=== PATIENT | female | born 1970 | race Caucasian/White ===

== ENCOUNTER → 2018-02-07 | Outpatient (CLI) | payer OTHER ==
[2018-02-07 08:50] LABS: Basophils # (auto) 0 uL; Basophils % (auto) 0.5 % (0.0-2.0); Eosinophils # (auto) 0.1 uL; Eosinophils % (auto) 1.8 % (0.0-7.0); Hematocrit 48.7 % (36.0-46.0); Hemoglobin 16.2 g/dL (12.2-16.2); Lymphocytes # (auto) 2.7 uL; Lymphocytes % (auto) 35.3 % (10.0-50.0); Mean Corpuscular Hemoglobin 30.1 pg (28.0-32.0); Mean Corpuscular Hgb Conc. 33.3 g/dL (32.0-36.0); Mean Corpuscular Volume 90.2 fL (80.0-100.0); Monocytes # (auto) 0.5 uL; Monocytes % (auto) 6.4 % (0.0-12.0); Neutrophils # (auto) 4.2 uL; Nucleated Red Blood Cells % 0.1 %; Platelet Count (auto) 189 10^3/uL (140-450); Red Blood Cells 5.39 10^6/uL (4.0-5.20); Red Cell Distribution Width 13.1 % (11.8-14.3); White Blood Cell 7.5 10^3/uL (4.4-10.8)
[2018-02-07 09:37] LABS: Albumin 3.7 g/dL (3.4-5.0); BUN/Creatinine Ratio 18.6; Bilirubin, Total 0.9 mg/dL (0.2-1.0); Calcium 9.1 mg/dL (8.5-10.1); Potassium 3.9 mmol/L (3.5-5.1); Total Protein 7.1 g/dL (6.4-8.2)
== END | disposition home or self-care (01) ==
LOC: LAB 07:48
PROVIDERS: ATTEND Family Medicine
DX: Z00.01 Encounter for general adult medical examination with abnormal findings (principal); R79.89 Other specified abnormal findings of blood chemistry; Z72.0 Tobacco use
CPT/HCPCS: 36415; 80053; 80061; 82607; 83036; 84443; 85025

== ENCOUNTER → 2018-03-14 | Outpatient (CLI) | payer OTHER ==
[2018-03-14 10:42] LABS: Albumin 3.9 g/dL (3.4-5.0); BUN/Creatinine Ratio 16.7; Bilirubin, Total 1.1 mg/dL (0.2-1.0); Calcium 9.2 mg/dL (8.5-10.1); Potassium 3.8 mmol/L (3.5-5.1); Total Protein 7.8 g/dL (6.4-8.2)
== END | disposition home or self-care (01) ==
LOC: LAB 08:40
PROVIDERS: ATTEND Family Medicine
DX: E53.8 Deficiency of other specified B group vitamins (principal); E78.4 Other hyperlipidemia
CPT/HCPCS: 36415; 80053; 80061; 82607

== ENCOUNTER → 2019-02-27 | Outpatient (CLI) | payer OTHER ==
[2019-02-27 08:35] LABS: Basophils # (auto) 0 uL; Basophils % (auto) 0.4 % (0.0-2.0); Eosinophils # (auto) 0.1 uL; Eosinophils % (auto) 1.8 % (0.0-7.0); Hematocrit 49.8 % (36.0-46.0); Hemoglobin 16.5 g/dL (12.2-16.2); Lymphocytes # (auto) 2.3 uL; Lymphocytes % (auto) 30.3 % (10.0-50.0); Mean Corpuscular Hemoglobin 30.2 pg (28.0-32.0); Mean Corpuscular Hgb Conc. 33.1 g/dL (32.0-36.0); Mean Corpuscular Volume 91.5 fL (80.0-100.0); Monocytes # (auto) 0.4 uL; Monocytes % (auto) 5.9 % (0.0-12.0); Neutrophils # (auto) 4.7 uL; Neutrophils % (auto) 61.6 % (37.0-80.0); Nucleated Red Blood Cells % 0.1 %; Platelet Count (auto) 179 10^3/uL (140-450); Red Blood Cells 5.44 10^6/uL (4.0-5.20); Red Cell Distribution Width 13.4 % (11.8-14.3); White Blood Cell 7.7 10^3/uL (4.4-10.8)
[2019-02-27 09:09] LABS: Albumin 3.5 g/dL (3.4-5.0); Calcium 8.8 mg/dL (8.5-10.1)
[2019-02-27 09:14] LABS: BUN/Creatinine Ratio 17.6; Total Protein 6.8 g/dL (6.4-8.2)
[2019-02-27 09:58] LABS: Urine Bacteria NONE SEEN /hpf (None Seen); Urine Blood Negative /uL (Negative); Urine Specific Gravity 1.003 (1.001-1.035); Urine WBC <1 /hpf (0 - 5)
== END | disposition home or self-care (01) ==
LOC: LAB 08:01
PROVIDERS: ATTEND Family Medicine
DX: E78.2 Mixed hyperlipidemia (principal); E53.8 Deficiency of other specified B group vitamins; J45.30 Mild persistent asthma, uncomplicated; Z72.0 Tobacco use
CPT/HCPCS: 36415; 80053; 80061; 81001; 82306; 82607; 84443; 85025

== ENCOUNTER → 2019-05-19 | Outpatient (CLI) | payer OTHER ==
[2019-05-19 13:52] LABS: Albumin 3.6 g/dL (3.4-5.0); Bilirubin, Direct 0.2 mg/dL (0-0.2)
[2019-05-19 13:55] LABS: Bilirubin, Total 0.6 mg/dL (0.2-1.0); Total Protein 6.7 g/dL (6.4-8.2)
== END | disposition home or self-care (01) ==
LOC: LAB 07:07
PROVIDERS: ATTEND Family Medicine
DX: E55.9 Vitamin D deficiency, unspecified (principal); E78.9 Disorder of lipoprotein metabolism, unspecified; E67.8 Other specified hyperalimentation
CPT/HCPCS: 36415; 80061; 80076; 82306; 82607

== ENCOUNTER → 2019-08-14 | Outpatient (CLI) | payer OTHER ==
[2019-08-14 08:57] LABS: Albumin 3.6 g/dL (3.4-5.0); Potassium 4.2 mmol/L (3.5-5.1)
[2019-08-14 09:07] LABS: BUN/Creatinine Ratio 24.5; Bilirubin, Total 1.2 mg/dL (0.2-1.0); Calcium 8.9 mg/dL (8.5-10.1); Total Protein 7.2 g/dL (6.4-8.2)
== END | disposition home or self-care (01) ==
LOC: LAB 07:18
PROVIDERS: ATTEND Family Medicine
DX: E78.2 Mixed hyperlipidemia (principal); E67.8 Other specified hyperalimentation; J45.909 Unspecified asthma, uncomplicated
CPT/HCPCS: 36415; 80053; 80061

== ENCOUNTER 2019-08-15 10:37 | Emergency (ER) | payer OTHER ==
[~2019-08-15] VITALS: Ht 170.2 cm; Wt 68.0 kg
[2019-08-15 11:58] LABS: Basophils # (auto) 0 uL; Basophils % (auto) 0.5 % (0.0-2.0); Eosinophils # (auto) 0.2 uL; Eosinophils % (auto) 1.8 % (0.0-7.0); Hematocrit 45.9 % (36.0-46.0); Hemoglobin 15.4 g/dL (12.2-16.2); Lymphocytes # (auto) 2.7 uL; Lymphocytes % (auto) 32.3 % (10.0-50.0); Mean Corpuscular Hemoglobin 30.9 pg (28.0-32.0); Mean Corpuscular Hgb Conc. 33.4 g/dL (32.0-36.0); Mean Corpuscular Volume 92.3 fL (80.0-100.0); Monocytes # (auto) 0.4 uL; Monocytes % (auto) 5.1 % (0.0-12.0); Neutrophils # (auto) 5.1 uL; Neutrophils % (auto) 60.3 % (37.0-80.0); Nucleated Red Blood Cells % 0.1 %; Platelet Count (auto) 212 10^3/uL (140-450); Red Blood Cells 4.97 10^6/uL (4.0-5.20); White Blood Cell 8.4 10^3/uL (4.4-10.8)
[2019-08-15 12:14] LABS: Chloride 106 mmol/L (98-107); Potassium 3.7 mmol/L (3.5-5.1); Sodium 138 mmol/L (136-145)
[2019-08-15 12:19] LABS: Albumin 3.5 g/dL (3.4-5.0); Anion Gap 4 (5-15); BUN/Creatinine Ratio 18.5; Blood Urea Nitrogen 10 mg/dL (7-18); Calcium 8.1 mg/dL (8.5-10.1); Carbon Dioxide 28 mmol/L (21-32); GFR African American 153 mL/min; GFR Non-African American 127 mL/min; Glucose 100 mg/dL (74-106)
[2019-08-15 12:24] LABS: Alanine Aminotransferase 22 U/L (13-56); Alkaline Phosphatase 86 U/L (45-117); Aspartate Aminotransferase 15 U/L (15-37); Total Protein 6.9 g/dL (6.4-8.2)
[2019-08-15 15:00] VITALS: BP 111/72
== END 2019-08-15 15:24 | disposition home or self-care (01) ==
LOC: EDBD 10:37 → ER 10:47
DX: S02.5XXA Fracture of tooth (traumatic), initial encounter for closed fracture (principal); R55 Syncope and collapse; R42 Dizziness and giddiness; J45.909 Unspecified asthma, uncomplicated; F17.210 Nicotine dependence, cigarettes, uncomplicated; X58.XXXA Exposure to other specified factors, initial encounter; Y93.89 Activity, other specified; Y92.89 Other specified places as the place of occurrence of the external cause; Y99.8 Other external cause status
CPT/HCPCS: 36415; 70450; 70486; 80053; 84484; 85025; 93005

== ENCOUNTER → 2019-11-17 | Outpatient (CLI) | payer OTHER | END | disposition home or self-care (01) | LOC: Rad HDHVI 08:06 | PROVIDERS: ATTEND Internal Medicine Cardiovascular Disease | DX: I34.0 Nonrheumatic mitral (valve) insufficiency (principal); I47.9 Paroxysmal tachycardia, unspecified; J44.9 Chronic obstructive pulmonary disease, unspecified; R55 Syncope and collapse | CPT/HCPCS: 93306 ==

== ENCOUNTER → 2019-11-25 | Outpatient (CLI) | payer OTHER | END | disposition home or self-care (01) | LOC: Rad HDHVI 12:45 | PROVIDERS: ATTEND Internal Medicine Cardiovascular Disease | DX: I10 Essential (primary) hypertension (principal); R55 Syncope and collapse | CPT/HCPCS: 93880 ==

== ENCOUNTER → 2019-11-30 | Outpatient (CLI) | payer OTHER ==
[~2019-11-30] VITALS: Ht 167.6 cm; Wt 68.0 kg
== END | disposition home or self-care (01) ==
LOC: Rad HDHVI 09:29
PROVIDERS: ATTEND Internal Medicine Cardiovascular Disease
DX: E78.00 Pure hypercholesterolemia, unspecified (principal); F17.210 Nicotine dependence, cigarettes, uncomplicated; Z82.49 Family history of ischemic heart disease and other diseases of the circulatory system
CPT/HCPCS: 78452; 93017; 96374; A9500

== ENCOUNTER → 2020-10-06 | Outpatient (CLI) | payer OTHER ==
[2020-10-06 07:49] LABS: Potassium 3.9 mmol/L (3.5-5.1)
[2020-10-06 07:57] LABS: Basophils # (auto) 0.1 10 ^3/uL (0-0.2); Basophils % (auto) 0.7 % (0.0-2.0); Eosinophils # (auto) 0.2 10 ^3/uL (0-0.8); Eosinophils % (auto) 2.5 % (0.0-7.0); Hematocrit 44.3 % (36.0-46.0); Hemoglobin 15.4 g/dL (12.2-16.2); Lymphocytes # (auto) 3.2 10 ^3/uL (0.4-5.4); Mean Corpuscular Hemoglobin 31.6 pg (28.0-32.0); Mean Corpuscular Hgb Conc. 34.7 g/dL (32.0-36.0); Mean Corpuscular Volume 91.2 fL (80.0-100.0); Monocytes # (auto) 0.5 10 ^3/uL (0-1.3); Monocytes % (auto) 6.6 % (0.0-12.0); Neutrophils # (auto) 3.7 10 ^3/uL (1.6-8.6); Neutrophils % (auto) 48.2 % (37.0-80.0); Platelet Count (auto) 160 10^3/uL (140-450); Red Blood Cells 4.86 10^6/uL (4.0-5.20); Red Cell Distribution Width 13.4 % (11.8-14.3); White Blood Cell 7.6 10^3/uL (4.4-10.8)
[2020-10-06 08:15] LABS: Albumin 3.5 g/dL (3.4-5.0); BUN/Creatinine Ratio 26.2; Bilirubin, Total 0.8 mg/dL (0.2-1.0); Calcium 8.9 mg/dL (8.5-10.1); Total Protein 7.1 g/dL (6.4-8.2)
== END | disposition home or self-care (01) ==
LOC: LAB 07:10
PROVIDERS: ATTEND Family Medicine
DX: E78.2 Mixed hyperlipidemia (principal); E67.8 Other specified hyperalimentation; E66.3 Overweight; E55.9 Vitamin D deficiency, unspecified; J45.30 Mild persistent asthma, uncomplicated; Z72.0 Tobacco use
CPT/HCPCS: 36415; 80053; 80061; 82306; 82607; 84443; 85025

== ENCOUNTER → 2022-02-22 | Outpatient (CLI) | payer OTHER | END | disposition home or self-care (01) | LOC: LAB 13:56 | PROVIDERS: ATTEND Student in an Organized Health Care Education/Training Program | DX: Z12.11 Encounter for screening for malignant neoplasm of colon (principal); Z00.00 Encounter for general adult medical examination without abnormal findings | CPT/HCPCS: 82274 ==

== ENCOUNTER → 2022-05-17 | Outpatient (CLI) | payer OTHER ==
[~2022-05-17] MED LIST: ALBUTEROL SULF 2.5 MG/0.5ML(0.5%) NEB SOLN ONE
== END | disposition home or self-care (01) ==
LOC: RT 09:47
PROVIDERS: ATTEND Internal Medicine Pulmonary Disease
DX: J44.9 Chronic obstructive pulmonary disease, unspecified (principal)
CPT/HCPCS: 94060; 94727; 94729

== ENCOUNTER → 2022-10-26 | Outpatient (CLI) | payer OTHER ==
[2022-10-26 09:10] LABS: Basophils # (auto) 0.1 10 ^3/uL (0-0.2); Basophils % (auto) 0.8 % (0.0-2.0); Eosinophils # (auto) 0.2 10 ^3/uL (0-0.8); Eosinophils % (auto) 2.5 % (0.0-7.0); Hematocrit 46.4 % (36.0-46.0); Hemoglobin 14.9 g/dL (12.2-16.2); Lymphocytes # (auto) 2.3 10 ^3/uL (0.4-5.4); Lymphocytes % (auto) 28.6 % (10.0-50.0); Mean Corpuscular Hemoglobin 28.8 pg (28.0-32.0); Mean Corpuscular Hgb Conc. 32.1 g/dL (32.0-36.0); Mean Corpuscular Volume 89.6 fL (80.0-100.0); Monocytes # (auto) 0.4 10 ^3/uL (0-1.3); Monocytes % (auto) 5.6 % (0.0-12.0); Neutrophils % (auto) 62.5 % (37.0-80.0); Nucleated Red Blood Cells % 0.1 %; Red Blood Cells 5.17 10^6/uL (4.0-5.20)
[2022-10-26 10:58] LABS: Albumin 3.7 g/dL (3.4-5.0); Calcium 9.1 mg/dL (8.5-10.1)
[2022-10-26 11:08] LABS: Bilirubin, Total 1.3 mg/dL (0.2-1.0); Total Protein 7.4 g/dL (6.4-8.2)
== END | disposition home or self-care (01) ==
LOC: LAB 08:41
PROVIDERS: ATTEND Student in an Organized Health Care Education/Training Program
DX: E78.3 Hyperchylomicronemia (principal); E55.9 Vitamin D deficiency, unspecified; E53.8 Deficiency of other specified B group vitamins; R63.5 Abnormal weight gain
CPT/HCPCS: 36415; 80053; 80061; 84439; 84443; 85025

== ENCOUNTER → 2024-03-27 | Outpatient (CLI) | payer OTHER ==
[2024-03-30 10:08] LABS: Hepatitis B Core Total AB Negative (Negative)
[2024-03-30 11:54] LABS: Hepatitis A Total Antibody Negative (Negative); Hepatitis B Surface Antibody Negative (Negative); Hepatitis B Surface Antigen Negative (Negative); Hepatitis C Antibody Negative (Negative)
== END | disposition home or self-care (01) ==
LOC: LAB 12:21
PROVIDERS: ATTEND Student in an Organized Health Care Education/Training Program
DX: R74.01 Elevation of levels of liver transaminase levels (principal)
CPT/HCPCS: 36415; 86704; 86706; 86708; 86803; 87340

== ENCOUNTER → 2024-12-14 | Outpatient (CLI) | payer OTHER ==
[2024-12-14 11:50] LABS: Basophils # (auto) 0.1 10 ^3/uL (0-0.2); Eosinophils # (auto) 0.1 10 ^3/uL (0-0.8); Hemoglobin 13.5 g/dL (12.2-16.2); Mean Corpuscular Volume 81.1 fL (80.0-100.0); White Blood Cell 6.2 10^3/uL (4.4-10.8)
[2024-12-14 11:52] LABS: Hematocrit 41.5 % (36.0-46.0); Lymphocytes # (auto) 2.2 10 ^3/uL (0.4-5.4); Lymphocytes % (auto) 35.2 % (10.0-50.0); Mean Corpuscular Hemoglobin 26.4 pg (28.0-32.0); Mean Corpuscular Hgb Conc. 32.5 g/dL (32.0-36.0); Monocytes # (auto) 0.4 10 ^3/uL (0-1.3); Monocytes % (auto) 5.7 % (0.0-12.0); Neutrophils # (auto) 3.5 10 ^3/uL (1.6-8.6); Neutrophils % (auto) 56.1 % (37.0-80.0); Platelet Count (auto) 166 10^3/uL (140-450); Red Blood Cells 5.12 10^6/uL (4.0-5.20); Red Cell Distribution Width 15.6 % (11.8-14.3)
[2024-12-14 11:57] LABS: Alanine Aminotransferase 21 U/L (7-40); Anion Gap 8 (5-15); Carbon Dioxide 25 mmol/L (20-31); Chloride 105 mmol/L (98-107); Sodium 138 mmol/L (136-145)
[2024-12-14 11:58] LABS: Alkaline Phosphatase 186 U/L (46-116); BUN/Creatinine Ratio 13.9 (10.0-20.0); Blood Urea Nitrogen 10 mg/dL (9-23); Glucose 310 mg/dL (74-106); Triglycerides 204 mg/dL (< 150)
[2024-12-14 11:59] LABS: Albumin 4.6 g/dL (3.2-4.8)
[2024-12-14 12:00] LABS: Bilirubin, Total 0.8 mg/dL (0.2-1.0)
[2024-12-14 12:01] LABS: Aspartate Aminotransferase 12 U/L (13-40); Cholesterol 235 mg/dL (< 200); HDL Cholesterol 36 mg/dL (40-59); LDL Cholesterol 163 mg/dL (< 100)
== END | disposition home or self-care (01) ==
LOC: LAB 11:14
PROVIDERS: ATTEND Licensed Practical Nurse
DX: Z12.11 Encounter for screening for malignant neoplasm of colon (principal); Z13.1 Encounter for screening for diabetes mellitus; Z13.29 Encounter for screening for other suspected endocrine disorder; J44.9 Chronic obstructive pulmonary disease, unspecified; E78.2 Mixed hyperlipidemia; E55.9 Vitamin D deficiency, unspecified; R91.1 Solitary pulmonary nodule; R79.89 Other specified abnormal findings of blood chemistry
CPT/HCPCS: 36415; 80053; 80061; 82274; 82306; 82607; 83036; 84443; 85025

== ENCOUNTER → 2025-01-22 | Outpatient (CLI) | payer OTHER | END | disposition home or self-care (01) | LOC: LAB 10:45 | PROVIDERS: ATTEND Obstetrics & Gynecology | DX: R87.611 Atypical squamous cells cannot exclude high grade squamous intraepithelial lesion on cytologic smear of cervix (ASC-H) (principal) ==

== ENCOUNTER → 2025-02-03 | Outpatient (CLI) | payer OTHER ==
[2025-02-03 07:47] LABS: Basophils # (auto) 0 10 ^3/uL (0-0.2); Eosinophils # (auto) 0.3 10 ^3/uL (0-0.8); Lymphocytes # (auto) 2.1 10 ^3/uL (0.4-5.4); Monocytes # (auto) 0.5 10 ^3/uL (0-1.3)
[2025-02-03 07:50] LABS: Basophils % (auto) 0.6 % (0.0-2.0); Eosinophils % (auto) 3.9 % (0.0-7.0); Hematocrit 45.8 % (36.0-46.0); Hemoglobin 15.1 g/dL (12.2-16.2); Lymphocytes % (auto) 26.8 % (10.0-50.0); Mean Corpuscular Hemoglobin 26.9 pg (28.0-32.0); Mean Corpuscular Volume 81.6 fL (80.0-100.0); Monocytes % (auto) 5.9 % (0.0-12.0); Neutrophils % (auto) 62.8 % (37.0-80.0); Nucleated Red Blood Cells % 0.2 %; Platelet Count (auto) 238 10^3/uL (140-450); Red Blood Cells 5.61 10^6/uL (4.0-5.20); Red Cell Distribution Width 14.2 % (11.8-14.3); White Blood Cell 7.9 10^3/uL (4.4-10.8)
[2025-02-03 07:57] LABS: Alanine Aminotransferase 31 U/L (7-40); Anion Gap 9 (5-15); Aspartate Aminotransferase 26 U/L (13-40); BUN/Creatinine Ratio 13.2 (10.0-20.0); Bilirubin, Total 0.9 mg/dL (0.2-1.0); Blood Urea Nitrogen 9 mg/dL (9-23); Carbon Dioxide 27 mmol/L (20-31); Chloride 107 mmol/L (98-107); Cholesterol 149 mg/dL (< 200); LDL Cholesterol 92 mg/dL (< 100); Sodium 143 mmol/L (136-145); Total Protein 7.7 g/dL (5.7-8.2); Triglycerides 127 mg/dL (< 150)
[2025-02-03 07:58] LABS: Albumin 5.2 g/dL (3.2-4.8); Alkaline Phosphatase 144 U/L (46-116); Calcium 11.1 mg/dL (8.7-10.4); Glucose 122 mg/dL (74-106); HDL Cholesterol 32 mg/dL (40-59); Potassium 3.1 mmol/L (3.5-5.1)
[2025-02-03 10:20] LABS: Hepatitis B Core Total AB Negative (Negative)
[2025-02-03 11:55] LABS: Hepatitis A Total Antibody Positive (Negative); Hepatitis B Surface Antibody Negative (Negative); Hepatitis B Surface Antigen Negative (Negative); Hepatitis C Antibody Negative (Negative)
== END | disposition home or self-care (01) ==
LOC: LAB 06:42
PROVIDERS: ATTEND Licensed Practical Nurse
DX: E11.65 Type 2 diabetes mellitus with hyperglycemia (principal); J44.9 Chronic obstructive pulmonary disease, unspecified; E78.2 Mixed hyperlipidemia; K76.0 Fatty (change of) liver, not elsewhere classified
CPT/HCPCS: 36415; 80053; 80061; 82607; 83036; 85025; 86703; 86704; 86706; 86708; 86803; 87340

== ENCOUNTER 2025-03-26 07:13 | Day surgery (SDC) | payer OTHER ==
[2025-03-24 10:10] LABS: Urine Bacteria None Seen /hpf (None Seen)
[2025-03-24 10:15] LABS: Basophils # (auto) 0.1 10 ^3/uL (0-0.2); Basophils % (auto) 0.7 % (0.0-2.0); Eosinophils # (auto) 0.2 10 ^3/uL (0-0.8); Eosinophils % (auto) 2.1 % (0.0-7.0); Hematocrit 43.5 % (36.0-46.0); Hemoglobin 14.5 g/dL (12.2-16.2); Lymphocytes # (auto) 2.6 10 ^3/uL (0.4-5.4); Lymphocytes % (auto) 23.4 % (10.0-50.0); Mean Corpuscular Hgb Conc. 33.3 g/dL (32.0-36.0); Mean Corpuscular Volume 83.9 fL (80.0-100.0); Monocytes # (auto) 0.5 10 ^3/uL (0-1.3); Monocytes % (auto) 4.9 % (0.0-12.0); Neutrophils # (auto) 7.6 10 ^3/uL (1.6-8.6); Neutrophils % (auto) 68.9 % (37.0-80.0); Nucleated Red Blood Cells % 0.1 %; Platelet Count (auto) 228 10^3/uL (140-450); Red Blood Cells 5.19 10^6/uL (4.0-5.20); Red Cell Distribution Width 14.4 % (11.8-14.3)
[2025-03-24 10:21] LABS: Urine Blood 1+ /uL (Negative); Urine Clarity Clear (Clear); Urine Color Light-Yellow (Yellow); Urine Mucus FEW (None Seen); Urine Protein, UAD Negative (Negative); Urine Specific Gravity 1.009 (1.001-1.035); Urine Squamous Epithelial Cell FEW /hpf (<5); Urine Urobilinogen Normal (Negative); Urine WBC 2 /HPF (0-5)
[2025-03-24 10:32] LABS: INR 1.02 (0.9-1.15); Partial Thromboplastin Time 28.9 SEC (24.5-34.5); Prothrombin Time 10.8 sec (9.3-11.8)
[2025-03-24 10:47] LABS: Alanine Aminotransferase 18 U/L (7-40); Alkaline Phosphatase 102 U/L (46-116); Anion Gap 9 (5-15); Aspartate Aminotransferase 14 U/L (<34); BUN/Creatinine Ratio 13.8 (10.0-20.0); Carbon Dioxide 27 mmol/L (20-31); Chloride 106 mmol/L (98-107); Glucose 90 mg/dL (74-106); Potassium 4.2 mmol/L (3.5-5.1); Sodium 142 mmol/L (136-145); Total Protein 7.6 g/dL (5.7-8.2)
[2025-03-24 10:48] LABS: Bilirubin, Total 1.1 mg/dL (0.2-1.0)
[2025-03-24 10:51] LABS: Albumin 5.1 g/dL (3.2-4.8); Blood Urea Nitrogen 9 mg/dL (9-23)
[~2025-03-26] VITALS: Ht 167.6 cm; Wt 73.5 kg
[~2025-03-26 07:13] MED LIST changes: +ALBUAER3 IN; -ALBUTEROL SULF 2.5 MG/0.5ML(0.5%) NEB SOLN ONE; +CHOL200021 PO; +IPRA0.03; +METF-1145 PO; +ROSU40TA81 PO; +TIRZ7.5I SC; +UMEC1AER IN
[2025-03-26] MEDS ORDERED: IBUP-1456 PO (08:03)
[2025-03-26] MEDS ORDERED: HYDR-4072 PO (08:03)
[2025-03-26] MEDS ORDERED: ZOFR4T PO (08:03)
[2025-03-26] MEDS ORDERED: ONDANSETRON HCL 4 MG/2 ML VIAL IV PRN (08:15)
[2025-03-26] MEDS ORDERED: LACTATED RINGER'S 1,000 ML IV SCH (08:15)
[2025-03-26] MEDS ORDERED: SODIUM CHLORIDE LOCK 10 ML ONE (08:43)
[2025-03-26] MEDS ORDERED: PROPOFOL 10 MG/ML 20 ML IV ONE (08:43)
[2025-03-26] MEDS ORDERED: fentaNYL CITRATE 100 MCG/2 ML VL ONE (08:43)
[2025-03-26] MEDS ORDERED: KETAMINE 50mg/ML 1ml syringe ONE (08:43)
[2025-03-26] MEDS ORDERED: MIDAZOLAM HCL 2MG/2ML 2ml VIAL (1mg/ml) ONE (08:43)
[2025-03-26] MEDS ORDERED: LIDOCAINE 1% INJ PF 5ML AMP ONE (08:43)
[2025-03-26] MEDS ORDERED: ONDANSETRON HCL 4 MG/2 ML VIAL ONE (08:43)
[2025-03-26] MEDS ORDERED: HYDROmorphone HCL 2 MG/ML VL/or syr IV PRN ×2 (09:15)
[2025-03-26] MEDS ORDERED: MORPHINE SULFATE 4 MG/ML SYR/VIAL IV PRN (09:15)
[2025-03-26] MEDS ORDERED: MORPHINE SULFATE INJ 2 MG/ml SYRG IV PRN (09:15)
[2025-03-26] MEDS ORDERED: METOCLOPRAMIDE HCL 5MG/ml INJ 2ml VIAL IV ONE (09:15)
[2025-03-26] MEDS ORDERED: KETOROLAC TROMETH 30 MG/ML 1ML VIAL IV ONE (09:15)
[2025-03-26] MEDS: ceFAZolin 2 GM/D5W50ml 50 ML IV ONE (09:27)
[2025-03-26] MEDS: IODINE STRONG 5% SOLN 473ML ONE (09:40)
[2025-03-26] MEDS: FERRIC SUBSULFATE TOPICAL SOLN 30 ML BTL ONE (09:53)
[2025-03-26 10:01] VITALS: TEMP 98.1; O2SAT 95
[2025-03-26 10:25] VITALS: BP 117/60; PULSE 80; RESP 13; O2SAT 95
--- NOTE | 2025-03-26 13:34 | POSTOP ---
Post-Operative Note Post-Operative Note Preop Diagnosis hgsil Postop Diagnosis: hgsil Operation performed leep biopsy Specimen cx,ecc Anesthesia: Mac Anesthesiologist: anahi Blood Loss(fluid mgmt) 20ml Surgeon Rashmi Chapman Implant na Complications & Mgmt none Additional Remarks h and p [id number] Date 03/26/25 Time 13:32 Visit Coding OBGYN Date of Service: Mar 26, 2025 Billing Provider: RASHMI CHAPMAN DO FLIGHT TEST MECHANIC Common Visit Codes: 90119-[id number] OBS CARE (HIGH) FLIGHT TEST MECHANIC Procedure Codes: 28437-AKFL BX RASHMI CHAPMAN DO Mar 26, 2025 13:34
--- NOTE | 2025-03-26 13:35 | DVHDS2 ---
Physician Discharge Progress N Final Diagnosis: hgsil Operations or Procedures: Operations or Procedures leep biopsy Condition on Discharge: Good Disposition: Home Discharge Instructions: Diet: Regular Activity: Light activity Follow Up/Referral: 1w Medications: tacho partida Follow Up Care: Specialist: 1w Discharge Statement: "Patient was advised to return to the ER or call 911 if any headaches, dizziness, shortness of breath, chest pain, abdominal pain, bleeding, fevers, or worsening of medical condition. Patient was counseled about treatment plan, medications, possible side effects, patientverbalized understanding. All questions were answered to the best of my ability. This discharge took greater then 30 minutes in planning, reviewing documentation, counseling the patient, and discussing with other team members." Visit Coding OBGYN Date of Service: Mar 26, 2025 Billing Provider: RASHMI HILLMAN DO FIRE TOWER KEEPER Common Visit Codes: [id number] OBS CARE (HIGH) FIRE TOWER KEEPER Procedure Codes: 60129-HOVO BX RASHMI HILLMAN DO Mar 26, 2025 13:35
--- NOTE | 2025-03-26 13:38 | DVHOP2 ---
Operative Report DATE OF OPERATION: 03/26/25 PREOPERATIVE DIAGNOSES: High-grade squamos intraepithelial lesion. POSTOPERATIVE DIAGNOSES: High-grade squamos intraepithelial lesion. SURGEON: Rashmi Chapman D.O. ANESTHESIOLOGIST: anahi TYPE OF ANESTHESIA : MAC. CONSENT: The patient was informed of the risks and benefits of the procedure. The patient was informed of the risks and benefits of the procedure. These include but are not limited to , complications of anesthesia, postoperative infection, incomplete relief of symptoms, recurrence of symptoms, damage to blood vessels, nerves and tendons, deep venous thrombosis, pulmonary embolism and possible need for repeat surgery in the future. FINDINGS: External genitalia within normal limits. Vagina is normal. Cervix is grossly normal appearing. Uterus 8 weeks size. Adnexa were nonpalpable. SPECIMEN: Outer cervical biopsy, inner cervical biopsy, and endocervical biopsy. COMPLICATIONS: BLOOD PRODUCTS USED: None PROCEDURES: LEEP cone biopsy PROCEDURE IN DETAIL: The patient was taken to the operating room, where she was placed under MAC anesthesia. She was then prepped and draped in the usual sterile manner in dorsal lithotomy position. Bladder was emptied using a straight catheter. Examination under anesthesia revealed the above findings. A weighted speculum was placed in the vagina. Anterior lip of the cervix was grasped using a single tooth tenaculum. Cervix was bathed in Lugol's solution using 20 x 15 mm loop, outer side portion of cervix was circumferentially circumscribed, and second loop was used to excise the inner cervix. Endocervical curetting was performed. Three separate specimen was submitted. The denuded base was cauterized using ball cautery. Patient tolerated procedure well. Patient was taken to the recovery room in a stable condition. CONDITION: Stable ESTIMATED BLOOD LOSS: 50 mL Visit Coding OBGYN Date of Service: Mar 26, 2025 Billing Provider: RASHMI CHAPMAN DO LENGTH CONTROL TESTER Common Visit Codes: [id number] OBS CARE (HIGH) LENGTH CONTROL TESTER Procedure Codes: 07522-QVKF BX RASHMI CHAPMAN DO Mar 26, 2025 13:38
--- NOTE | 2025-03-30 07:57 | DVHHP ---
ADMIT DATE: 03/26/2025 CHIEF COMPLAINT: HGSIL, here for a LEEP biopsy. HISTORY OF PRESENT ILLNESS: The patient is a 54-year-old 2, para 2, admitted for LEEP biopsy secondary to HGSIL ASCUS. Cannot rule out HGSIL on the Pap with atypical glandular biopsy after colposcopy. The patient is subsequently scheduled for LEEP. PAST MEDICAL HISTORY: None. PAST SURGICAL HISTORY: Breast lumpectomy. SOCIAL HISTORY: The patient vapes. FAMILY HISTORY: Positive for breast cancer. REVIEW OF SYSTEMS: Consistent with HPI. ALLERGIES: No known drug allergies. PHYSICAL EXAMINATION: VITAL SIGNS: Stable, afebrile. HEENT: Within normal limits. CARDIOVASCULAR: Regular rate and rhythm. LUNGS: Clear to auscultation. BREASTS: Symmetrical. No masses. ABDOMEN: Soft, nontender. PELVIC: External genitalia within normal limits. Vagina normal. Cervix grossly normal. Uterus 8 weeks' size. Adnexa nonpalpable. EXTREMITIES: No clubbing, cyanosis, or edema. IMPRESSION: HGSIL. PLAN: LEEP cone biopsy. Informed consent obtained. Risks and complications of surgery including infection, bleeding, hematoma formation, injury to bowel or bladder, surrounding organ, possibility of DVT, pulmonary embolism, and risks of anesthesia were discussed with the patient. Options reviewed. All questions answered. The patient fully understands. She wishes to proceed with planned procedure. DO ARLETTE Maldonado/JAVID/CHACHO TID: [id number] RECEIPT: [id number]
== END 2025-03-26 10:40 | disposition home or self-care (01) ==
LOC: SUR 07:13
PROVIDERS: ATTEND Obstetrics & Gynecology
DX: C53.0 Malignant neoplasm of endocervix (principal); N87.9 Dysplasia of cervix uteri, unspecified; E78.00 Pure hypercholesterolemia, unspecified; E11.9 Type 2 diabetes mellitus without complications; J44.9 Chronic obstructive pulmonary disease, unspecified; F17.290 Nicotine dependence, other tobacco product, uncomplicated; Z80.3 Family history of malignant neoplasm of breast
CPT/HCPCS: 36415; 57522; 80053; 81001; 85025; 85610; 85730; 86850; 86900; 86901; 88305; 88342; J0690; J2250; J2405; J2704; J3010

== ENCOUNTER → 2025-05-07 | Outpatient (CLI) | payer OTHER ==
[~2025-05-07] MED LIST changes: +HYDR-4072 PO; +IBUP-1456 PO; +ZOFR4T PO
[2025-05-07 11:34] LABS: Triglycerides 160 mg/dL (< 150)
[2025-05-07 11:36] LABS: Cholesterol 181 mg/dL (< 200)
[2025-05-07 11:37] LABS: HDL Cholesterol 33 mg/dL (40-59)
== END | disposition home or self-care (01) ==
LOC: LAB 09:06
PROVIDERS: ATTEND Nurse Practitioner
DX: E55.9 Vitamin D deficiency, unspecified (principal); E11.9 Type 2 diabetes mellitus without complications
CPT/HCPCS: 36415; 80061; 82306; 83036; 85018

== ENCOUNTER 2025-05-10 09:54 | Outpatient (CLI) | payer OTHER ==
[2025-05-10 10:57] LABS: Hematocrit 42.8 % (36.0-46.0); Hemoglobin 14.2 g/dL (12.2-16.2); Mean Corpuscular Hemoglobin 28.2 pg (28.0-32.0); Mean Corpuscular Volume 84.7 fL (80.0-100.0); Nucleated Red Blood Cells % 0.1 %
[2025-05-10 11:09] LABS: Anion Gap 9 (5-15); Carbon Dioxide 28 mmol/L (20-31); Chloride 106 mmol/L (98-107); Potassium 4.7 mmol/L (3.5-5.1); Sodium 143 mmol/L (136-145)
[2025-05-10 11:10] LABS: Calcium 10.2 mg/dL (8.7-10.4)
[2025-05-10 11:15] LABS: BUN/Creatinine Ratio 24.2 (10.0-20.0); Blood Urea Nitrogen 15 mg/dL (9-23); Glucose 90 mg/dL (74-106)
== END 2025-05-10 17:00 | disposition home or self-care (01) ==
LOC: LAB 09:54
DX: C55 Malignant neoplasm of uterus, part unspecified (principal)
CPT/HCPCS: 36415; 80048; 85025

== ENCOUNTER 2025-05-14 13:55 | Outpatient (CLI) | payer OTHER ==
[2025-05-14 14:16] LABS: Hematocrit 45.3 % (36.0-46.0); Hemoglobin 14.3 g/dL (12.2-16.2); Mean Corpuscular Hemoglobin 28.0 pg (28.0-32.0); Mean Corpuscular Volume 88.3 fL (80.0-100.0); Nucleated Red Blood Cells % 0.0 %
[2025-05-14 14:28] LABS: INR 1.02 (0.9-1.15); Partial Thromboplastin Time 27.9 SEC (24.5-34.5); Prothrombin Time 10.8 sec (9.3-11.8)
[2025-05-14 14:37] LABS: Alanine Aminotransferase 21 U/L (7-40); Alkaline Phosphatase 89 U/L (46-116); Anion Gap 9 (5-15); Bilirubin, Total 0.8 mg/dL (0.2-1.0); Calcium 10.1 mg/dL (8.7-10.4); Carbon Dioxide 26 mmol/L (20-31); Chloride 106 mmol/L (98-107); Glucose 88 mg/dL (74-106); Potassium 4.4 mmol/L (3.5-5.1); Sodium 141 mmol/L (136-145); Total Protein 7.4 g/dL (5.7-8.2)
[2025-05-14 14:38] LABS: Albumin 5.0 g/dL (3.2-4.8)
[2025-05-14 14:48] LABS: BUN/Creatinine Ratio 18.3 (10.0-20.0); Blood Urea Nitrogen 11 mg/dL (9-23)
[2025-05-14 17:46] LABS: Urine Protein, UAD Negative (Negative)
== END 2025-05-14 17:00 | disposition home or self-care (01) ==
LOC: LAB 13:55
PROVIDERS: ATTEND Nurse Practitioner
DX: Z01.812 Encounter for preprocedural laboratory examination (principal)
CPT/HCPCS: 36415; 80053; 81001; 85025; 85610; 85730